=== PATIENT | female | born 1985 | race Caucasian/White ===

== ENCOUNTER 2017-09-29 16:00 | Emergency (ER) | payer MEDICAID ==
[~2017-09-29] VITALS: Ht 157.5 cm; Wt 73.5 kg
[~2017-09-29 16:00] MED LIST: ANTIVERT12.5 MG PO
[2017-09-29 16:05] VITALS: BP 145/88
== END 2017-09-29 17:48 | disposition home or self-care (01) ==
LOC: ED 16:00
DX: S09.90XA Unspecified injury of head, initial encounter (principal); H92.02 Otalgia, left ear; X58.XXXA Exposure to other specified factors, initial encounter; Y93.89 Activity, other specified; Y92.89 Other specified places as the place of occurrence of the external cause; Y99.8 Other external cause status

== ENCOUNTER 2017-11-20 18:07 | Emergency (ER) | payer MEDICAID ==
[~2017-11-20] VITALS: Ht 157.5 cm; Wt 68.0 kg
[2017-11-20 18:21] VITALS: BP 153/94; Ht 157.5 cm; Wt 68.0 kg
== END 2017-11-20 20:40 | disposition home or self-care (01) ==
LOC: ED 18:07
DX: S63.501A Unspecified sprain of right wrist, initial encounter (principal); X58.XXXA Exposure to other specified factors, initial encounter; Y93.89 Activity, other specified; Y99.8 Other external cause status; Y92.89 Other specified places as the place of occurrence of the external cause

== ENCOUNTER 2018-12-04 13:10 | Emergency (ER) | payer MEDICAID ==
[~2018-12-04] VITALS: Ht 157.5 cm; Wt 71.2 kg
[2018-12-04 13:13] VITALS: Ht 157.5 cm; Wt 71.2 kg
[2018-12-04 13:29] VITALS: BP 147/102
[2018-12-04 13:47] LABS: BASOPHIL % 0.5 % (0-2); PLATELET COUNT 287 x10^3mcL (130-400); RED CELL DISTRIBUTION WIDTH 12.9 % (11.5-14.5)
[2018-12-04 14:24] LABS: ALBUMIN 3.8 g/dL (3.4-5.0); ALKALINE PHOSPHATASE 59 U/L (46-116); ALT/SGPT 19 U/L (14-59); AST/SGOT 19 U/L (15-37); BILIRUBIN TOTAL 0.32 mg/dL (0.20-1.00); CALCIUM 8.6 mg/dL (8.5-10.1); CARBON DIOXIDE 28.5 mmol/L (21-32); CHLORIDE SERUM 104 mmol/L (98-107); CREATININE SERUM 0.8 mg/dL (0.6-1.0); GFR1 > 60 mL/min; GLUCOSE SERUM 101 mg/dL (74-106); SODIUM SERUM 139 mmol/L (136-145); TOTAL PROTEIN, SERUM 7.8 g/dL (6.4-8.2)
== END 2018-12-04 14:41 | disposition home or self-care (01) ==
LOC: ED 13:10
PROVIDERS: Emergency Medicine
DX: F45.8 Other somatoform disorders (principal); F41.9 Anxiety disorder, unspecified
CPT/HCPCS: 36415; Q0092

== ENCOUNTER 2018-12-31 21:49 | Emergency (ER) | payer MEDICAID ==
[~2018-12-31] VITALS: Ht 157.5 cm; Wt 72.6 kg
[2018-12-31 21:52] VITALS: Ht 157.5 cm; Wt 72.6 kg
[2018-12-31 22:28] VITALS: BP 157/110
== END 2018-12-31 22:28 | disposition home or self-care (01) ==
LOC: ED 21:49
DX: S62.001A Unspecified fracture of navicular [scaphoid] bone of right wrist, initial encounter for closed fracture (principal); F41.9 Anxiety disorder, unspecified; X58.XXXA Exposure to other specified factors, initial encounter; Y93.89 Activity, other specified; Y92.89 Other specified places as the place of occurrence of the external cause; Y99.8 Other external cause status

== ENCOUNTER 2019-09-12 17:05 | Emergency (ER) | payer MEDICAID ==
[~2019-09-12] VITALS: Ht 160 cm; Wt 73.0 kg
[2019-09-12 17:34] VITALS: Ht 160 cm; Wt 73.0 kg
[2019-09-12 23:11] LABS: microscopic required? NO
[2019-09-12 23:28] LABS: BASOPHIL % 0.3 % (0-2); PLATELET COUNT 392 x10^3mcL (130-400); RED CELL DISTRIBUTION WIDTH 17.6 % (11.5-14.5)
[2019-09-12 23:36] LABS: CALCIUM 8.9 mg/dL (8.5-10.1); CARBON DIOXIDE 30.5 mmol/L (21-32); CHLORIDE SERUM 102 mmol/L (98-107); CREATININE SERUM 0.7 mg/dL (0.6-1.0); GFR1 > 60 mL/min; GLUCOSE SERUM 83 mg/dL (74-106); SODIUM SERUM 139 mmol/L (136-145)
[2019-09-12 23:57] LABS: POTASSIUM SERUM 2.9 mmol/L (3.5-5.1)
[2019-09-13 00:07] LABS: UA SPECIFIC GRAVITY 1.015 (1.005-1.035); urine erythrocyte NEGATIVE (NEGATIVE)
[2019-09-13 00:43] VITALS: BP 149/97
== END 2019-09-13 00:43 | disposition home or self-care (01) ==
LOC: ED 17:05
PROVIDERS: Emergency Medicine
DX: R05 Cough (principal); R51 Headache; J02.9 Acute pharyngitis, unspecified; R30.9 Painful micturition, unspecified
CPT/HCPCS: 36415; 86308; 87491; 87591